=== PATIENT | female | born 1970 | race Caucasian/White ===

== ENCOUNTER → 2017-07-28 | Outpatient (CLI) | payer OTHER ==
--- NOTE | 2017-07-28 16:38 | WOMENS IMAGING REPORT ---
EXAM DESCRIPTION: BILAT SCREENING MAMMO W/CAD COMPLETED DATE/TIME: 07/28/2017 3:04 pm REASON FOR STUDY: SCREENING MAMMO Z12.31 ENCNTR SCREEN MAMMOGRAM FOR MALIGNANT NEOPLASM OF CUCO COMPARISON: 12/16/2015. TECHNIQUE: Standard craniocaudal and mediolateral oblique views of each breast recorded using digita l acquisition. LIMITATIONS: None. FINDINGS: No masses, calcifications or architectural distortion. No areas of suspicion. Read with the assistance of CAD. .[facility] - R2 Cenova Version 1.3 .[facility] - R2 Cenova Version 1.3 .[facility] - R2 Cenova Version 2.4 .[facility] [place]2 Cenova Version 2.4 .[facility] - R2 Relocation Commissioner Version 9.2 IMPRESSION: NORMAL MAMMOGRAM. BIRADS 1. BREAST DENSITY: b. There are scattered areas of fibroglandular density. BIRAD: 1 NEGATIVE RECOMMENDATION: ROUTINE SCREENING COMMENT: The patient has been notified of the results by letter per SA requirements. Additional no tification policies are in place for contacting patient with suspicious or incomplete findings. Quality ID #[id number]: The [employer] recommends an annual screening mammogram for women aged 40 years or over. This facility utilizes a reminder system to ensure that all patients receive reminder letters, and/or direct phone calls for appointments. This includes reminders for routine scr eening mammograms, diagnostic mammograms, or other Breast Imaging Interventions when appropriate. Th is patient will be placed in the appropriate reminder system. The [employer] (ACR) has developed recommendations for screening MRI of the breast s in certain patient populations, to be used in conjunction with mammography. Breast MRI surveillanc e may be appropriate for women with more than 20% lifetime risk of developing breast cancer as deter mined by genetic testing, significant family history of the disease, or history of mantle radiation f or Hodgkins Disease. ACR Practice Guidelines 2008. TECHNICAL DOCUMENTATION: FINDING NUMBER: (1) ASSESSMENT: (1) JOB ID: [id number] [employer]- All Rights Reserved
== END ==
LOC: WI 14:08
PROVIDERS: ATTEND Obstetrics & Gynecology
DX: Z12.31 Encounter for screening mammogram for malignant neoplasm of breast (principal)
CPT/HCPCS: 77067; G0202

== ENCOUNTER 2017-09-22 05:13 | Day surgery (SDC) | payer OTHER ==
[2017-09-14 10:07] LABS: APPEARANCE,URINE CLEAR; BILIRUBIN,URINE NEGATIVE (NEGATIVE); COLOR,URINE STRAW; GLUCOSE, URINE NEGATIVE (NEGATIVE); KETONES,URINE NEGATIVE (NEGATIVE); LEUKOCYTE ESTERASE,URINE NEGATIVE (NEGATIVE); NITRITE,URINE NEGATIVE (NEGATIVE); PROTEIN,URINE NEGATIVE (NEGATIVE); URINE SPECIFIC GRAVITY 1.003; UROBILINOGEN,URINE NEGATIVE mg/dL (<2.0)
[2017-09-14 11:12] LABS: MEAN CORPUSCULAR HEMOGLOBIN 29.5 pg (27.0-33.4); MEAN CORPUSCULAR HGB CONC 34.2 g/dL (32.0-36.0); MEAN CORPUSCULAR VOLUME 86 fl (80-97); PLATELET COUNT 220 10^3/uL (150-450); RED CELL DISTRIBUTION WIDTH 13.7 % (11.5-14.0); WHITE BLOOD COUNT 4.7 10^3/uL (4.0-10.5)
[2017-09-14 11:33] LABS: ALANINE AMINOTRANSFERASE 36 U/L (9-52); ALBUMIN 4.3 g/dL (3.5-5.0); ALKALINE PHOSPHATASE 100 U/L (38-126); ANION GAP 10 (5-19); ASPARTATE AMINO TRANSFERASE 28 U/L (14-36); BILIRUBIN,DIRECT 0.3 mg/dL (0.0-0.4); BILIRUBIN,TOTAL 0.3 mg/dL (0.2-1.3); BLOOD UREA NITROGEN 10 mg/dL (7-20); CALCIUM 9.1 mg/dL (8.4-10.2); CARBON DIOXIDE 26 mmol/L (22-30); CHLORIDE 105 mmol/L (98-107); GLUCOSE 71 mg/dL (75-110); POTASSIUM 3.9 mmol/L (3.6-5.0); TOTAL PROTEIN 6.9 g/dL (6.3-8.2)
--- NOTE | 2017-09-14 12:18 | RADIOLOGY REPORT (SQ) ---
EXAM DESCRIPTION: CHEST PA/LATERAL COMPLETED DATE/TIME: 09/14/2017 11:03 am REASON FOR STUDY: PRE-OP COMPARISON: None. EXAM PARAMETERS: NUMBER OF VIEWS: two views TECHNIQUE: Digital Frontal and Lateral radiographic views of the chest acquired. RADIATION DOSE: NA LIMITATIONS: none FINDINGS: LUNGS AND PLEURA: No opacities, masses or pneumothorax. No pleural effusion. MEDIASTINUM AND HILAR STRUCTURES: No masses or contour abnormalities. HEART AND VASCULAR STRUCTURES: Heart normal size. No evidence for failure. BONES: No acute findings. HARDWARE: None in the chest. OTHER: No other significant finding. IMPRESSION: NO SIGNIFICANT RADIOGRAPHIC FINDING IN THE CHEST. TECHNICAL DOCUMENTATION: JOB ID: [id number] [employer]- All Rights Reserved
--- NOTE | 2017-09-15 11:56 | EKG REPORT ---
SEVERITY:- NORMAL ECG - SINUS RHYTHM : Confirmed by: Dante Galloway 15-Sep-2017 11:56:17
[~2017-09-22 05:13] MED LIST: CEFAZOLIN 1 GM/D5W RTU 1 GM/50 ML RTUPB IV PRN; LACTATED RINGERS 1000 ML IV PRN; LIDOCAINE 0.5% INJ-PF (5 MG/ML) 50 ML SDV SUBCUT PRN
[2017-09-22] MEDS ORDERED: LIDOCAINE 1%/EPINEPHRINE INJ 20 ML VIAL ONE (06:57)
[2017-09-22] MEDS ORDERED: ONDANSETRON HCL INJ/PF 4 MG/2 ML SDV ONE ×2 (07:12→10:12)
[2017-09-22] MEDS ORDERED: DEXAMETHASONE SOD PHOSPHATE INJ 4 MG/1 ML VIAL ONE (07:12)
[2017-09-22] MEDS ORDERED: MIDAZOLAM 2 MG/2 ML INJ ONE (07:12)
[2017-09-22] MEDS ORDERED: FENTANYL CITRATE INJ/PF 100 MCG/2 ML AMPUL ONE (07:12)
[2017-09-22] MEDS ORDERED: PROPOFOL INJ 200 MG/20 ML VIAL IV ONE (07:12)
[2017-09-22] MEDS ORDERED: MORPHINE SULFATE 10 MG/ML INJ ONE ×2 (07:13→10:49)
[2017-09-22] MEDS ORDERED: ACETAMINOPHEN 100 ML IV ONE ×2 (07:13→15:00)
[2017-09-22] MEDS ORDERED: ESTROGENS,CONJUGATED 0.625 MG/1 GM 30 GM TUBE PV PRN (08:02)
[2017-09-22] MEDS ORDERED: DIPHENHYDRAMINE HCL 50 MG/ML VIAL IV PRN (08:15)
[2017-09-22] MEDS ORDERED: MORPHINE SULFATE 10 MG/ML INJ IV PRN ×2 (08:15→10:54)
[2017-09-22] MEDS ORDERED: PROMETHAZINE HCL INJ 25 MG/1 ML VIAL IV PRN ×2 (08:15)
[2017-09-22] MEDS ORDERED: FENTANYL CITRATE INJ/PF 100 MCG/2 ML AMPUL IV PRN ×3 (08:15)
[2017-09-22] MEDS ORDERED: MEPERIDINE HCL/PF INJ 25 MG/1 ML DISP.SYRIN IV PRN (08:15)
[2017-09-22] MEDS ORDERED: SUCCINYLCHOLINE CHLORIDE INJ 200 MG/10 ML VIAL ONE (09:42)
[2017-09-22] MEDS ORDERED: ROCURONIUM BROMIDE INJ 50 MG/5 ML VIAL IV ONE (09:42)
[2017-09-22] MEDS ORDERED: IBUPROFEN 800 MG TABLET PO PRN (10:55)
[2017-09-22] MEDS ORDERED: OXYCODONE-ACETAMINOPHEN 5-325 MG TABLET PO PRN (10:56)
[2017-09-22] MEDS: KETOROLAC TROMETHAMINE INJ/PF 30 MG/1 ML SDV IV SCH ×2 (15:25→23:14)
[2017-09-23 06:06] LABS: HEMATOCRIT 35.8 % (36.0-47.0); HEMOGLOBIN 11.9 g/dL (12.0-15.5); MEAN CORPUSCULAR HEMOGLOBIN 28.8 pg (27.0-33.4); MEAN CORPUSCULAR HGB CONC 33.3 g/dL (32.0-36.0); MEAN CORPUSCULAR VOLUME 87 fl (80-97); PLATELET COUNT 306 10^3/uL (150-450); RED BLOOD COUNT 4.14 10^6/uL (3.72-5.28); RED CELL DISTRIBUTION WIDTH 13.6 % (11.5-14.0); WHITE BLOOD COUNT 11.7 10^3/uL (4.0-10.5)
[2017-09-23] MEDS ORDERED: RINGERS SOLUTION,LACTATED 1,000 ML IV PRN (08:08)
[2017-09-23] MEDS: KETOROLAC TROMETHAMINE INJ/PF 30 MG/1 ML SDV IV SCH (08:22)
[2017-09-23] MEDS ORDERED: KETOROLAC TROMETHAMINE INJ/PF 30 MG/1 ML SDV IV ONE (08:30)
--- NOTE | 2017-09-23 09:31 | PDOC DISCHARGE SUMMARY ---
General - Admit/Disc Date/PCP Discharge Date: 09/23/17 - Discharge Diagnosis (1) Abnormal uterine and vaginal bleeding, unspecified Is this a current diagnosis for this admission?: Yes (2) Anemia Is this a current diagnosis for this admission?: Yes (3) Chronic pelvic pain in female Is this a current diagnosis for this admission?: Yes (4) Uterovaginal prolapse, unspecified Is this a current diagnosis for this admission?: Yes - Additional Information Home Medications: Amlodipine Besylate 10 mg PO DAILY 09/14/17 Paroxetine HCl [Paxil] 10 mg PO DAILY 09/14/17 Omeprazole 20 mg PO 09/22/17 History of Present Illness History of Present Illness: RANDEE BUSTOS is a 47 year old female Hospital Course Hospital Course: underwent TVH w/ right salpingectomy and anterior repair without difficulty. unremarkable post operative course. ready to be discharged home. Physical Exam - Physical Exam Vital Signs: Temp Pulse Resp BP Pulse Ox 97.9 F 66 18 123/66 94 09/23/17 07:53 09/23/17 07:53 09/23/17 07:53 09/23/17 07:53 09/23/17 07:53 Intake & Output 09/22/17 09/23/17 09/24/17 06:59 06:59 06:59 Intake Total 0 1928 Output Total 3260 Balance 0 -1332 Weight 77.56 kg General appearance: PRESENT: no acute distress, cooperative GI/Abdominal exam: PRESENT: soft, tenderness - appropriate for post operative period Musculoskeletal exam: PRESENT: ambulatory, full ROM Neurological exam: PRESENT: alert, awake, oriented to person, oriented to place , oriented to time - Gynecological Exam Labia: normal Urethra: normal Vagina: not examined Result Laboratory Results: 09/23/17 05:10 09/14/17 10:32 09/23/17 05:10 WBC 11.7 H RBC 4.14 Hgb 11.9 L Hct 35.8 L MCV 87 MCH 28.8 MCHC 33.3 RDW 13.6 Plt Count 306 Impressions: Chest X-Ray 09/14/17 10:49 IMPRESSION: NO SIGNIFICANT RADIOGRAPHIC FINDING IN THE CHEST. Plan Discharge Plan: discharge home and follow up as scheduled with Dr. Acosta in office. Time Spent: Less than 30 Minutes
[2017-09-23 11:22] VITALS: BP 124/67
[2017-09-23] MEDS ORDERED: IBUPROFEN 800 MG TABLET PO PRN (12:00)
--- NOTE | 2017-10-06 14:58 | OPERATIVE REPORT E ---
Operative Report NAME: RANDEE BUSTOS : 1970 AGE: 47Y DATE OF SURGERY: 09/22/2017 ROOM: 213 PREOPERATIVE DIAGNOSES: 1. ABNORMAL UTERINE BLEEDING. 2. ANEMIA. 3. VAGINAL PROLAPSE. POSTOPERATIVE DIAGNOSES: 1. ABNORMAL UTERINE BLEEDING. 2. ANEMIA. 3. VAGINAL PROLAPSE. OPERATION: Transvaginal hysterectomy with anterior repair. SURGEON: JORDON BEDOLLA M.D. DIRECTOR DRUG: Martha *------* BIOMEDICAL ENGINEERING INTERNSHIP: marine technician. ANESTHESIA: George Spencer MD, with general. SPECIMENS REMOVED: Uterus, cervix and right fallopian tube. FINDINGS: Grade 2 anterior prolapse of the vaginal mucosa, 8 weeks' size uterus. COMPLICATIONS: None. ESTIMATED BLOOD LOSS: 100 mL. PROCEDURE: Patient was taken to the operating room, prepared and draped in the normal sterile fashion, in dorsolithotomy position in candy cane stirrups. A Sylvester catheter was placed to gravity. The weighted speculum was placed into the posterior cul-de-sac and the cervix was grasped with a single-toothed tenaculum on the anterior lip. A [place] blade was placed at the anterior aspect of the vagina. The cervix was then injected with approximately 20 mL of lidocaine with epi, and this was massaged into the tissues. The cervix was then scored circumferentially using a 10 blade, and the mucosa was dissected away from the cervix and uterus using Mayos and pickups, until the anterior cul-de-sac could be entered underneath the bladder. The Arden blade was replaced and the posterior cul-de-sac was then carefully entered using Bajwa scissors. The uterosacral ligaments were then suture ligated using 0 Vicryl and tagged. The rest of the uterus was then removed using the LigaSure device on the uterine artery, skeletonizing the mucosa as we went, until the specimen was freed. The right fallopian tube was easily visualized, and this was grasped with a Paris, and this was also removed using the LigaSure. The left fallopian tube was not able to be adequately visualized. We did at one point see an ovarian cyst that did rupture; however, the fallopian tube was never found amongst the epiploica. It was determined at this point to just remove the right fallopian tube, as the left was not easily accessible and did not want to risk further bleeding at the IP ligament. The vaginal cuff was then closed with an 0 Vicryl runner, incorporating the uterosacrals into a modified Yeager culdoplasty, which were tied in the middle with 0 Vicryl. Inspection of the vagina afterwards did reveal a continued prolapse of the anterior vaginal wall; therefore, an anterior repair was begun. The vaginal mucosa was grasped in the midline using 2 Allis clamps, and this was injected with lidocaine with epi. This mucosa was then carefully scored using a 15 blade. The mucosa was then transected and dissected away from the bladder using Metzenbaums and some blunt dissection with a Ray-Iain until there was adequate room bilaterally to place some support sutures, which was done with 0 Vicryl. Approximately 3 support sutures were placed in the vesicovaginal mucosa and tied just underneath the bladder neck and urethra. The excess skin was then trimmed away and the mucosa was then repaired using 4-0 Vicryl. I then inspected the posterior aspect of the vagina and found that it was really well-supported after the hysterectomy, and there was no further prolapse really of the posterior side, so this was left intact. The patient tolerated procedure well. Sponge, lap and needle counts were correct x2 and the patient was taken to recovery in stable condition. DICTATING PHYSICIAN: JORDON BEDOLLA M.D. [id number] [facility]#: [id number] ID: [id number] JOB#: [id number] ACCT: [id number] cc:JORDON BEDOLLA M.D. >
== END 2017-09-23 12:08 | disposition home or self-care (01) ==
LOC: OROUT 05:13 → 2N 10:27 → OROUT 09-23 12:08
PROVIDERS: ATTEND Obstetrics & Gynecology
PROC: 0UT97ZZ Resection of Uterus, Via Natural or Artificial Opening (ICD-10-PCS; principal; 2017-09-22 07:30)
PROC: 0JQC0ZZ Repair Pelvic Region Subcutaneous Tissue and Fascia, Open Approach (ICD-10-PCS; 2017-09-22 07:30)
DX: N80.0 Endometriosis of uterus (principal); N72 Inflammatory disease of cervix uteri; N83.8 Other noninflammatory disorders of ovary, fallopian tube and broad ligament; N81.2 Incomplete uterovaginal prolapse; R10.2 Pelvic and perineal pain; I10 Essential (primary) hypertension; N93.9 Abnormal uterine and vaginal bleeding, unspecified; D64.9 Anemia, unspecified; F17.210 Nicotine dependence, cigarettes, uncomplicated; Z79.899 Other long term (current) drug therapy
CPT/HCPCS: 93005; 86900; 86901; 36415 ×2; 86850; 85027 ×2; 81025; 80053; 81001; 88307 ×2; 71046; 93010; 58260; 57240; J2250; J0690; J3490 ×3; J1100; J3010; J1885 ×2; J2270; J0330; J2405; J7120; J2704; J0131; 944

== ENCOUNTER 2018-03-12 20:41 | Emergency (ER) | payer OTHER ==
[2018-03-12 20:55] VITALS: BP 144/84
[2018-03-12] MEDS ORDERED: IBUPROFEN 600 MG TABLET PO ONE (21:53)
--- NOTE | 2018-03-12 21:55 | ER Document Report ---
ED General - General Chief Complaint: Numbness Stated Complaint: HAND PAIN Time Seen by Provider: 03/12/18 21:52 Mode of Arrival: Ambulatory Information source: Patient TRAVEL OUTSIDE OF THE [place] IN LAST 30 DAYS: No - HPI Patient complains to provider of: Numbness and tingling to fingers Onset: Other - 3 months Onset/Duration: Gradual, Persistent Quality of pain: Achy Severity: Mild Pain Level: 2 Notes: Patient is a 47-year-old female presenting to the emergency room today complaining of numbness and tingling to both hands/fingers, symptoms been going on for the past 3 months, she saw her primary care provider and has an appointment with a neurologist but cannot be seen for at least another month, she denies any injuries, she was previously working at the [employer], denies any specific injury from this but does make repetitive motion, her right hand is worse than her left, she denies any difficulty ambulating or difficulty with speech - Related Data Allergies/Adverse Reactions: No Known Allergies Allergy (Verified 09/22/17 05:46) Past Medical History - General Information source: Patient - Social History Smoking Status: Current Every Day Smoker Chew tobacco use (# tins/day): No Frequency of alcohol use: None Drug Abuse: None Family History: Reviewed & Not Pertinent Patient has suicidal ideation: No Patient has homicidal ideation: No - Past Medical History Cardiac Medical History: Reports: Hx Hypercholesterolemia, Hx Hypertension - ON MEDS Denies: Hx Coronary Artery Disease, Hx Heart Attack Pulmonary Medical History: Denies: Hx Asthma, Hx Bronchitis, Hx COPD, Hx Pneumonia Neurological Medical History: Denies: Hx Cerebrovascular Accident, Hx Seizures Renal/ Medical History: Denies: Hx Peritoneal Dialysis GI Medical History: Reports: Hx Gastroesophageal Reflux Disease Musculoskeletal Medical History: Denies Hx Arthritis Psychiatric Medical History: Reports: Hx Depression - anxiety Past Surgical History: Reports: Hx Hysterectomy - Immunizations Hx Diphtheria, Pertussis, Tetanus Vaccination: Yes Review of Systems - Review of Systems Constitutional: No symptoms reported EENT: No symptoms reported Cardiovascular: No symptoms reported Respiratory: No symptoms reported Gastrointestinal: No symptoms reported Genitourinary: No symptoms reported Female Genitourinary: No symptoms reported Musculoskeletal: See HPI Skin: No symptoms reported Hematologic/Lymphatic: No symptoms reported Neurological/Psychological: Numbness, Tingling -: Yes All other systems reviewed and negative Physical Exam - Vital signs Vitals: Temp Pulse Resp BP Pulse Ox 98.2 F 84 18 144/84 H 98 03/12/18 20:54 03/12/18 20:54 03/12/18 20:54 03/12/18 20:54 03/12/18 20:54 - Notes Notes: - General General appearance: Appears well, Alert In distress: None - HEENT Head: Normocephalic, Atraumatic Eyes: Normal Conjunctiva: Normal Extraocular movements intact: Yes Eyelashes: Normal Pupils: PERRL - Respiratory Respiratory status: No respiratory distress - Cardiovascular Rhythm: Regular - Abdominal Inspection: Normal - Back Back: Normal - Extremities General upper extremity: Positive Tinel sign bilaterally, positive Phalen test bilaterally, 2+ radial pulses bilaterally, brisk capillary refill, distal sensation and motor is intact General lower extremity: Normal inspection - Neurological Neuro grossly intact: Yes Orientation: AAOx4 Marshall Coma Scale Eye Opening: Spontaneous [place] Coma Scale Verbal: Oriented [place] Coma Scale Motor: Obeys Commands Marshall Coma Scale Total: 15 - Psychological Associated symptoms: Normal affect, Normal mood - Skin Skin Temperature: Warm Skin Moisture: Dry Skin Color: Normal Course - Re-evaluation Re-evalutation: 03/13/18 01:43 Patient with signs and symptoms consistent with likely carpal tunnel syndrome, right greater than left, symptoms have been going on for the past 3 months or more, she was seen by her primary care provider and is scheduled to see a neurologist for EMG testing in 1 month's time, she felt as though one month was too long to wait so she came to the emergency room tonight, patient was given cockup wrist splints, as well as a prescription for Motrin 600 mg, advised to follow-up with orthopedics and neurology or return if symptoms worsen, patient acknowledges understanding and agreement with this plan - Vital Signs Vital signs: Temp Pulse Resp BP Pulse Ox 98.2 F 84 18 144/84 H 98 03/12/18 20:54 03/12/18 20:54 03/12/18 20:54 03/12/18 20:54 03/12/18 20:54 Procedures - Immobilization Right Wrist Time completed: 22:00 Pre-Proc Neuro Vasc Exam: Normal Immobilizer type: Cock-up Performed by: PCT Post-Proc Neuro Vasc Exam: Normal Alignment checked and good: Yes Left Wrist Time completed: 22:00 Pre-Proc Neuro Vasc Exam: Normal Immobilizer type: Cock-up Performed by: PCT Post-Proc Neuro Vasc Exam: Normal Alignment checked and good: Yes Discharge - Discharge Clinical Impression: Carpal tunnel syndrome on both sides Condition: Stable Disposition: HOME, SELF-CARE Instructions: Carpal Tunnel Syndrome ([facility]), Numbness or Paresthesia ([facility]) Additional Instructions: Follow up with your primary care provider and an orthopedic surgeon in one to 2 days. Return to the emergency room immediately if symptoms worsen or any additional concerns. Prescriptions: Ibuprofen [Motrin 600 Mg Tablet] 600 mg PO TID #30 tablet Referrals: MARISSA BANKS DO [ACTIVE STAFF] - Follow up as needed
== END 2018-03-12 22:05 | disposition home or self-care (01) ==
LOC: ER 20:41
DX: G56.03 Carpal tunnel syndrome, bilateral upper limbs (principal); R20.0 Anesthesia of skin; R20.2 Paresthesia of skin; I10 Essential (primary) hypertension; F17.200 Nicotine dependence, unspecified, uncomplicated
CPT/HCPCS: 99283; L3908 ×3

== ENCOUNTER → 2018-11-16 | Outpatient (CLI) | payer OTHER ==
[2018-11-16 11:45] LABS: HEMATOCRIT 42.4 % (36.0-47.0); HEMOGLOBIN 14.6 g/dL (12.0-15.5); MEAN CORPUSCULAR HEMOGLOBIN 31.1 pg (27.0-33.4); MEAN CORPUSCULAR HGB CONC 34.5 g/dL (32.0-36.0); MEAN CORPUSCULAR VOLUME 90 fl (80-97); PLATELET COUNT 320 10^3/uL (150-450); WHITE BLOOD COUNT 8.2 10^3/uL (4.0-10.5)
[2018-11-16 12:05] LABS: URIC ACID 4.2 mg/dL (2.5-7.5)
[2018-11-16 12:07] LABS: C-REACTIVE PROTEIN < 5.0 mg/L (<10.0)
[2018-11-20 07:12] LABS: CYCLIC CITRUL PEPTIDE IGG/A AB <1 units (0-19)
== END ==
LOC: OD 10:42
PROVIDERS: ATTEND Orthopaedic Surgery
DX: M25.50 Pain in unspecified joint (principal)
CPT/HCPCS: 36415; 84550; 85027; 85652; 86038; 86140; 86200; 86430

== ENCOUNTER 2019-12-17 09:06 | Emergency (ER) | payer OTHER ==
[2019-12-17] MEDS ORDERED: KETOROLAC TROMETHAMINE 60 MG/2 ML SDV IM ONE (09:22)
--- NOTE | 2019-12-17 09:28 | ER Document Report ---
HPI - HPI Time Seen by Provider: 12/17/19 09:16 Notes: 49-year-old female patient presents emergency department chief complaint of right-sided rib pain. Patient reports rib to the anterior and lateral lower ribs. She states this is been present for the last 2 to 3 weeks. She denies any direct trauma. She reports that prior to the onset of pain she did have a respiratory infection in which she was coughing a lot. Patient reports this morning she sneezed and felt and heard a pop. She does report increased pain with deep breaths. Denies shortness of breath. Past Medical History - General Information source: Patient - Social History Smoking Status: Current Every Day Smoker Frequency of alcohol use: None Drug Abuse: None Family History: Reviewed & Not Pertinent - Past Medical History Cardiac Medical History: Reports: Hx Hypercholesterolemia, Hx Hypertension - ON MEDS Denies: Hx Coronary Artery Disease, Hx Heart Attack Pulmonary Medical History: Denies: Hx Asthma, Hx Bronchitis, Hx COPD, Hx Pneumonia Neurological Medical History: Denies: Hx Cerebrovascular Accident, Hx Seizures Renal/ Medical History: Denies: Hx Peritoneal Dialysis GI Medical History: Reports: Hx Gastroesophageal Reflux Disease Musculoskeletal Medical History: Denies Hx Arthritis Psychiatric Medical History: Reports: Hx Depression - anxiety Past Surgical History: Reports: Hx Hysterectomy - Immunizations Hx Diphtheria, Pertussis, Tetanus Vaccination: Yes Vertical Provider Document - CONSTITUTIONAL Notes: PHYSICAL EXAMINATION: GENERAL: Well-appearing, well-nourished and in no acute distress. HEAD: Atraumatic, normocephalic. EYES: Pupils equal round extraocular movements intact, conjunctiva are normal. ENT: Nares patent NECK: Normal range of motion LUNGS: No respiratory distress, lung sounds clear and equal bilaterally. Musculoskeletal: Normal range of motion, point tenderness over the anterior/lateral ribs on the right side. No crepitus, deformity. NEUROLOGICAL: Normal speech, normal gait. PSYCH: Normal mood, normal affect. SKIN: No rash over the tender area on the ribs. - INFECTION CONTROL TRAVEL OUTSIDE OF THE [place] IN LAST 30 DAYS: No Course - Re-evaluation Re-evalutation: 12/17/19 09:24 Patient with rib pain for the last few weeks after having a respiratory infection with cough a few weeks ago. Unlikely fracture. Lung sounds are clear and equal bilaterally. Rib x-rays were negative for any fracture or dislocation. Patient does have tenderness upon palpation of the anterior and lateral right ribs. She will be instructed to take ibuprofen, she will be sent home with an incentive spirometer and we will also give her a short course of [place] for severe pain only. Patient verbalizes understanding and agreement with this plan. She also understands ED return precautions as outlined in her discharge instructions. Discharge - Discharge Clinical Impression: Rib pain on right side Condition: Stable Disposition: HOME, SELF-CARE Additional Instructions: Rib Contusion You have been diagnosed as having bruised ribs. It will usually take a few weeks for these injured ribs to heal. You should cough or take a deep breath at least every hour or two to prevent lung complications. You should not engage in any strenuous physical activity until released by your physician. The usual rule is "if it hurts, don't do it." Return if you develop any of the following: (1) Fever or chills. (2) Persistent cough, coughing up blood, or shortness of breath. (3) Increasing pain. (4) Weakness, lightheadedness, or fainting. Using incentive spirometer that we have sent you home with. Please take 10 breaths on this per hour while awake. This will help ensure lung expansion and prevent you from getting a pneumonia. Please take ibuprofen 600 mg every 6 hours for your pain. I would recommend taking this over the next couple of days. Use the [place] that I have sent to home with for severe pain only. You may take 1/2 to 1 tablet every 4 hours. Forms: Return to Work Referrals: MARISSA BANKS, [ACTIVE STAFF] - Follow up as needed
[2019-12-17 09:55] LABS: APPEARANCE,URINE CLEAR; BILIRUBIN,URINE NEGATIVE (NEGATIVE); COLOR,URINE YELLOW; GLUCOSE, URINE NEGATIVE (NEGATIVE); KETONES,URINE NEGATIVE (NEGATIVE); LEUKOCYTE ESTERASE,URINE NEGATIVE (NEGATIVE); NITRITE,URINE NEGATIVE (NEGATIVE); PROTEIN,URINE NEGATIVE (NEGATIVE); URINE SPECIFIC GRAVITY 1.004; UROBILINOGEN,URINE NEGATIVE mg/dL (<2.0)
--- NOTE | 2019-12-17 10:05 | RADIOLOGY REPORT (SQ) ---
EXAM DESCRIPTION: RIBS RIGHT W/PA CHEST IMAGES COMPLETED DATE/TIME: 12/17/2019 9:52 am REASON FOR STUDY: R anterior/lateral rib pain, no trauma COMPARISON: None. TECHNIQUE: Frontal view of the chest and additional views of the right ribs acquired. NUMBER OF VIEWS: Three views. LIMITATIONS: None. FINDINGS: FRONTAL CXR: The cardiomediastinal silhouette and pulmonary vasculature are within normal limits. There is no consolidation, pleural effusion or pneumothorax. RIBS: No displaced rib fractures. OTHER: No other finding. IMPRESSION: 1. No acute cardiopulmonary process. 2. No displaced right-sided rib fractures. COMMENT: SITE OF TRAUMA/COMPLAINT MARKED/STAMP COMPLETED: NO. TECHNICAL DOCUMENTATION: JOB ID: [id number] 2010 [employer]- All Rights Reserved Reading location - IP/workstation name: [email or web address]
[2019-12-17] MEDS ORDERED: HYDROCODONE/ACETAMINOPHEN 5-325 MG (6 TAB/ER DISP) PO PRN (10:17)
[2019-12-17 10:39] VITALS: BP 129/88
== END 2019-12-17 10:39 | disposition home or self-care (01) ==
LOC: ER 09:06
DX: R07.81 Pleurodynia (principal); R06.7 Sneezing; F17.200 Nicotine dependence, unspecified, uncomplicated; I10 Essential (primary) hypertension
CPT/HCPCS: 99283; 81001; 71101; J1885

== ENCOUNTER → 2019-12-21 | Outpatient (CLI) | payer OTHER ==
--- NOTE | 2019-12-21 08:49 | RADIOLOGY REPORT (SQ) ---
EXAM DESCRIPTION: U/S ABDOMEN COMPLETE W/O DOP IMAGES COMPLETED DATE/TIME: 12/21/2019 8:37 am REASON FOR STUDY: RUQ PAIN (R10.11) R10.11 RIGHT UPPER QUADRANT PAIN COMPARISON: None. TECHNIQUE: Dynamic and static grayscale images acquired of the abdomen and recorded on PACS. Additio nal selected color Doppler and spectral images recorded. Note: Study does not meet criteria for complete doppler/duplex scan LIMITATIONS: None. FINDINGS: PANCREAS: No masses. Visualized pancreatic duct normal caliber. LIVER: Increased echogenicity with decreased visualization of the portal triads. No focal lesions. No intrahepatic ductal dilation. Liver measures 17 cm. LIVER VASCULATURE: Normal directional flow of the main portal vein and hepatic veins. GALLBLADDER: No stones. Normal wall thickness. No pericholecystic fluid. ULTRASOUND-DETECTED DAWKINS'S SIGN: Negative. INTRAHEPATIC DUCTS AND COMMON DUCT: CBD and intrahepatic ducts normal caliber. No filling defects. INFERIOR VENA CAVA: Normal flow. AORTA: Proximal aorta measures up to 2.6 cm. RIGHT KIDNEY: Mild asymmetrically small measuring 10.0 cm. Normal echogenicity. No solid or susp icious masses. No hydronephrosis. No calcifications. LEFT KIDNEY: Normal size measuring 12.4 cm. Normal echogenicity. No solid or suspicious masses. No hydronephrosis. No calcifications. SPLEEN: Normal in size measuring 10.4 cm. No focal lesions. PERITONEAL AND PLEURAL SPACES: No ascites or effusions. OTHER: No other significant finding. IMPRESSION: 1. Hepatic steatosis. 2. Unremarkable gallbladder. No cholelithiasis 3. Proximal aorta measures up to 2.6 cm. Follow-up as below. COMMENT: AAA Size: Follow-up Recommendation 2.6-2.9 cm Every 5 years* *Based upon the Society for Vascular Surgery Guidelines: J Vasc Surg. 2009 Oct;50(4 Suppl):S2-49 *For aortas of maximum diameter of 2.6-2.9 cm meeting the criteria for AAA (?1.5 x proximal normal se gment) TECHNICAL DOCUMENTATION: JOB ID: [id number] 2010 [employer]- All Rights Reserved Reading location - IP/workstation name: [email or web address]
== END ==
LOC: RAD 06:46
PROVIDERS: ATTEND Physician Assistant
DX: K76.0 Fatty (change of) liver, not elsewhere classified (principal); R10.11 Right upper quadrant pain
CPT/HCPCS: 76700